=== PATIENT | male | born 1950 | race African-American/Black ===

== ENCOUNTER 2017-02-08 14:47 | Inpatient (IN) | payer MEDICARE ==
[2017-02-08] VITALS (7 sets, daily range): BP systolic 153–186; BP diastolic 79–93
[~2017-02-08] VITALS: Ht 165.1 cm; Wt 75.7 kg
[~2017-02-08 14:47] MED LIST: ACET500T33 PO; ASPI-482 PO; CARV3.122 PO; ESOM40CA PO; INSU100V13 SQ; LISI10TA2 PO; METF-620 PO; TRAZ50TA15 PO
[2017-02-08] MEDS ORDERED: BUPIVACAINE-EPI 0.25%-1:200000 MPF 30 ML VIAL. ONE (14:52)
[2017-02-08] MEDS ORDERED: fentaNYL PF VIAL 100 MCG/2 ML VIAL IV ONE (15:00)
[2017-02-08 15:12] LABS: BASO % 1 % (0-3); EOS % 1 % (0-3); HEMATOCRIT 36.8 % (39.0-53.0); HEMOGLOBIN 12.5 g/dL (13.0-17.5); LYMPH # 1.3 x10^3/uL (1.0-4.8); LYMPH % 20 % (24-48); MEAN CORPUSCULAR HEMOGLOBIN 29 pg (25-35); MEAN CORPUSCULAR HGB CONC 34 g/dL (31-37); MEAN CORPUSCULAR VOLUME 86 fL (79-100); MONO % 15 % (0-9); NEUT % 64 % (31-73); PLATELET COUNT 161 x10^3/uL (140-400); RED BLOOD COUNT 4.27 x10^6/uL (4.30-5.70); RED CELL DISTRIBUTION WIDTH 13.6 % (11.5-14.5); WHITE BLOOD COUNT 6.5 x10^3/uL (4.0-11.0)
--- NOTE | 2017-02-08 15:26 | RAD ---
Ankle x-ray Indication: Status post fall landing on ankle Technique: 2 views of the right ankle Comparison: None Findings: There is comminuted fracture of the tibial plafond with extension to the talotibial joint with lateral angulation. There is complete lateral displaced fracture of the distal fibula. Ankle mortise is no widening. Ankle edema noted. Peripheral vascular disease. Impression: Comminuted moderately displaced and angulated tibial plafond fracture. Moderately displaced angulated distal fibular fracture.
[2017-02-08 15:27] LABS: CALCIUM 9.6 mg/dL (8.5-10.1); CREATININE 1.3 mg/dL (0.7-1.3); POTASSIUM 4.1 mmol/L (3.5-5.1)
[2017-02-08 15:32] LABS: INR 1.2 (0.8-1.1); PROTHROMBIN TIME PATIENT 14.4 SEC (11.7-14.0)
[2017-02-08 15:33] LABS: ALBUMIN 3.6 g/dL (3.4-5.0); ALBUMIN/GLOBULIN RATIO 0.7 (1.0-1.7); TOTAL BILIRUBIN 0.9 mg/dL (0.2-1.0); TOTAL PROTEIN 8.6 g/dL (6.4-8.2)
[2017-02-08] MEDS ORDERED: IBUPROFEN 400 MG TABLET. PO PRN (15:45)
[2017-02-08] MEDS ORDERED: MAGNESIUM HYDROXIDE 2,400 MG/30 ML ORAL.SUSP. PO PRN (15:45)
[2017-02-08] MEDS ORDERED: PROCHLORPERAZINE 25 MG SUPP.RECT. PR PRN (15:45)
[2017-02-08] MEDS ORDERED: ZOLPIDEM 5 MG TABLET. PO PRN (15:45)
[2017-02-08] MEDS ORDERED: ONDANSETRON PF 4 MG/2 ML VIAL. IV PRN (15:45)
[2017-02-08] MEDS ORDERED: BISACODYL 10 MG SUPP.RECT. PR PRN (15:45)
[2017-02-08] MEDS ORDERED: CALCIUM CARBONATE 500 MG TAB.CHEW PO PRN (15:45)
[2017-02-08] MEDS ORDERED: oxyCODONE/APAP 5/325 1 TAB TABLET PO PRN (15:45)
[2017-02-08] MEDS ORDERED: KETOROLAC 30 MG/ML INJ. IV PRN (15:45)
[2017-02-08] MEDS ORDERED: ACETAMINOPHEN 325 MG TABLET. PO PRN (15:45)
[2017-02-08] MEDS ORDERED: MORPHINE SULFATE 2 MG/ML DISP.SYRIN. IV PRN (15:45)
[2017-02-08] MEDS ORDERED: MAG HYDROX/ALUMINUM HYD/SIMETH 30 ML ORAL.SUSP PO PRN (15:45)
[2017-02-08] MEDS ORDERED: PROCHLORPERAZINE 10 MG/2 ML VIAL. IV PRN (15:45)
[2017-02-08] MEDS ORDERED: fentaNYL PF VIAL 100 MCG/2 ML VIAL ONE (15:49)
--- NOTE | 2017-02-08 15:50 | PHYS DOC ---
Past Medical History Past Medical History: Diabetes-Type II, Heart Disease, Hypertension, Other Additional Past Medical Histor: NEUROPATHY, CHRONIC PAIN Past Surgical History: Other Additional Past Surgical Histo: colonoscopy Alcohol Use: None Drug Use: Marijuana Adult General Chief Complaint Chief Complaint: TRAUMA ALERT HPI HPI Patient is a 66 year old male presenting to the emergency department for evaluation of right ankle pain status post fall approximately 9 feet off of the ladder. Reportedly son was trying to hand him a staple gun and then he lost his balance and he did not want to land on the rocks below so he jumped away from the ladder and landed on his right ankle where he thinks he everted it. He says that there is some numbness to his toes but he has normal color with a strong dorsalis pedis pulse. He says that he last ate at 9:00 and thinks that he had a few sips of water at noon. He denies any head neck chest abdomen back or other extremity trauma. He is pleasant in no obvious distress with normal vital signs. Review of Systems Review of Systems Constitutional: Denies fever or chills [] Eyes: Denies change in visual acuity, redness, or eye pain [] HENT: Denies nasal congestion or sore throat [] Respiratory: Denies cough or shortness of breath [] Cardiovascular: No additional information not addressed in HPI [] GI: Denies abdominal pain, nausea, vomiting, bloody stools or diarrhea [] : Denies dysuria or hematuria [] Musculoskeletal: Denies back pain. + joint pain [] Integument: Denies rash or skin lesions [] Neurologic: Denies headache, focal weakness. + sensory changes [] Current Medications Current Medications Current Medications Medications (Trade) Dose Ordered Sig/[place] Start Time Stop Time Status Last Admin Dose Admin Acetaminophen (Tylenol) 650 mg PRN Q6HRS PRN 02/08/17 15:45 UNV Al Hydroxide/Mg Hydroxide (Mylanta Plus Xs) 30 ml PRN Q3HRS PRN 02/08/17 15:45 Bisacodyl (Dulcolax Supp) 10 mg PRN DAILY PRN 02/08/17 15:45 UNV Calcium Carbonate/ Glycine (Tums) 500 mg PRN Q3HRS PRN 02/08/17 15:45 Docusate Sodium (Colace) 100 mg BID 02/08/17 21:00 UNV Enoxaparin Sodium (Lovenox 40mg Syringe) 40 mg Q24H 02/08/17 15:45 UNV Ephedrine Sulfate (Akovaz) 50 mg STK-MED ONCE 02/08/17 15:50 02/08/17 15:51 DC Fentanyl Citrate (Fentanyl 2ml Vial) 100 mcg STK-MED ONCE 02/08/17 15:49 02/08/17 15:50 DC Ibuprofen (Motrin) 400 mg PRN Q6HRS PRN 02/08/17 15:45 UNV Ketorolac Tromethamine (Toradol) 30 mg PRN Q6HRS PRN 02/08/17 15:45 02/13/17 15:44 UNV Magnesium Hydroxide (Milk Of Magnesia) 2,400 mg PRN Q12HR PRN 02/08/17 15:45 UNV Morphine Sulfate 4 mg PRN Q2HR PRN 02/08/17 15:45 UNV Ondansetron HCl (Zofran) 4 mg PRN Q6HRS PRN 02/08/17 15:45 Oxycodone HCl (Roxicodone) 5 mg PRN Q3HRS PRN 02/08/17 15:45 UNV Oxycodone/ Acetaminophen (Percocet 5/325) 2 tab PRN Q4HRS PRN 02/08/17 15:45 UNV Prochlorperazine (Compazine) 25 mg PRN Q12HR PRN 02/08/17 15:45 Prochlorperazine Edisylate (Compazine) 10 mg PRN Q6HRS PRN 02/08/17 15:45 Sodium Chloride 1,000 ml @ 100 mls/hr Q10H 02/08/17 15:43 Zolpidem Tartrate (Ambien) 5 mg PRN QHS PRN 02/08/17 15:45 UNV Allergies Allergies Allergies Uncoded Allergies Type Severity Reaction Last Updated Verified ANTIBIOTIC Allergy Unknown 09/18/13 Physical Exam Physical Exam Constitutional: Well developed, well nourished, no acute distress, non-toxic appearance. [] HENT: Normocephalic, atraumatic, bilateral external ears normal, oropharynx moist, no oral exudates, nose normal. [] Eyes: PERRLA, EOMI, conjunctiva normal, no discharge. [] Neck: Normal range of motion, no tenderness, supple, no stridor. [] Cardiovascular:Heart rate regular rhythm, no murmur [] Lungs & Thorax: Bilateral breath sounds clear to auscultation [] Abdomen: Bowel sounds normal, soft, no tenderness, no masses, no pulsatile masses. [] Skin: Warm, dry, no erythema, no rash. [] Back: No tenderness, no CVA tenderness. [] Extremities: Right ankle deformity with distal dorsalis pedis pulse 2+. Neurologic: Alert and oriented X 3, normal motor function, subjective numbness to toes especially big toe. Current Patient Data Vital Signs Vital Signs Date Time Temp Pulse Resp B/P (MAP) Pulse Ox O2 Delivery O2 Flow Rate FiO2 02/08/17 15:36 91 20 143/71 (95) 96 Room Air 02/08/17 14:54 98.9 98.9 Lab Values Laboratory Tests Test 02/08/17 15:00 White Blood Count 6.5 x10^3/uL (4.0-11.0) Red Blood Count 4.27 x10^6/uL (4.30-5.70) L Hemoglobin 12.5 g/dL (13.0-17.5) L Hematocrit 36.8 % (39.0-53.0) L Mean Corpuscular Volume 86 fL (79-100) Mean Corpuscular Hemoglobin 29 pg (25-35) Mean Corpuscular Hemoglobin Concent 34 g/dL (31-37) Red Cell Distribution Width 13.6 % (11.5-14.5) Platelet Count 161 x10^3/uL (140-400) Neutrophils (%) (Auto) 64 % (31-73) Lymphocytes (%) (Auto) 20 % (24-48) L Monocytes (%) (Auto) 15 % (0-9) H Eosinophils (%) (Auto) 1 % (0-3) Basophils (%) (Auto) 1 % (0-3) Neutrophils # (Auto) 4.2 x10^3uL (1.8-7.7) Lymphocytes # (Auto) 1.3 x10^3/uL (1.0-4.8) Monocytes # (Auto) 1.0 x10^3/uL (0.0-1.1) Eosinophils # (Auto) 0.1 x10^3/uL (0.0-0.7) Basophils # (Auto) 0.0 x10^3/uL (0.0-0.2) Prothrombin Time 14.4 SEC (11.7-14.0) H Prothrombin Time INR 1.2 (0.8-1.1) H PTT 37 SEC (24-38) Sodium Level 140 mmol/L (136-145) Potassium Level 4.1 mmol/L (3.5-5.1) Chloride Level 104 mmol/L (98-107) Carbon Dioxide Level 24 mmol/L (21-32) Anion Gap 12 (6-14) Blood Urea Nitrogen 17 mg/dL (8-26) Creatinine 1.3 mg/dL (0.7-1.3) Estimated GFR (Cockcroft-Gault) 67.0 BUN/Creatinine Ratio 13 (6-20) Glucose Level 95 mg/dL (70-99) Calcium Level 9.6 mg/dL (8.5-10.1) Total Bilirubin 0.9 mg/dL (0.2-1.0) Aspartate Amino Transferase (AST) 206 U/L (15-37) H Alanine Aminotransferase (ALT) 170 U/L (16-63) H Alkaline Phosphatase 226 U/L (46-116) H Total Protein 8.6 g/dL (6.4-8.2) H Albumin 3.6 g/dL (3.4-5.0) Albumin/Globulin Ratio 0.7 (1.0-1.7) L Laboratory Tests 02/08/17 15:00 Laboratory Tests 02/08/17 15:00 EKG EKG [] Radiology/Procedures Radiology/Procedures Ankle x-ray Indication: Status post fall landing on ankle Technique: 2 views of the right ankle Comparison: None Findings: There is comminuted fracture of the tibial plafond with extension to the talotibial joint with lateral angulation. There is complete lateral displaced fracture of the distal fibula. Ankle mortise is no widening. Ankle edema noted. Peripheral vascular disease. Impression: Comminuted moderately displaced and angulated tibial plafond fracture. Moderately displaced angulated distal fibular fracture. DICTATED and SIGNED BY: KYLE CURTIS DO DATE: 02/08/17 0828 Course & Med Decision Making Course & Med Decision Making Patient has comminuted fracture of tibia and fibula with displacement noted. An unstable fracture that will require expects with orthopedics. Hospitalist will admit patient and Dr. Flores will take patient to the operating room. Patient admitted in stable condition. Dragon Disclaimer Dragon Disclaimer This electronic medical record was generated, in whole or in part, using a voice recognition dictation system. Departure Departure Impression: Primary Impression: Ankle fracture Disposition: ADMITTED INPATIENT Admitting Physician: Berna Squires Condition: STABLE Referrals: UNKNOWN PCP NAME (PCP) Problem Qualifiers Primary Impression: Ankle fracture Encounter type: initial encounter Fracture type: closed Laterality: right Qualified Codes: S82.891A - Other fracture of right lower leg, initial encounter for closed fracture OLEGARIO AUSTIN DO Feb 08, 2017 15:50
[2017-02-08] MEDS: ENOXAPARIN 40 MG/0.4 ML SYRINGE. SQ SCH (16:00)
--- NOTE | 2017-02-08 16:07 | PDOC1 ---
History and Physical Date of Admission Date of Admission DATE: 02/08/17 TIME: 16:03 Identification/Chief Complaint Chief Complaint fall from ladder Problems: Source Source: Caregiver, Chart review History of Present Illness History of Present Illness 66 y,.o male was helping a friend fix a roof, they twisted and he lost balance and so jumped off the ladder 9-12 ft high and fell on his feet and has been having sever pain since then, unable to bear weight, sustained a Comminuted moderately displaced and angulated tibial plafond fracture. Moderately displaced angulated distal fibular fracture.. Admitted and now having OR c.o ortho, PAst medical signif for DM with neuropathy, HTN, dyslipidemia but no known cardiac hx. Past Medical History Cardiovascular: HTN, Hyperlipidemia Endocrine: Diabetes Past Surgical History Past Surgical History: No pertinent history Family History Family History: High Cholestrol, Hypertension Social History Smoke: No ALCOHOL: none Drugs: None Current Medications Current Medications Current Medications Fentanyl Citrate (Fentanyl 2ml Vial) 100 mcg 1X ONCE IV Last administered on 02/08/17t 15:09; Start 02/08/17 at 15:00; Stop 02/08/17 at 15:14; Status DC Active Scripts Active Reported Metformin Hcl 1,000 Mg Tablet 1,000 Mg PO Tylenol Extra Strength (Acetaminophen) 500 Mg Tablet 500 Mg PO Levemir (Insulin Detemir) 100 Unit/1 Ml Vial 100 Unit SQ Trazodone Hcl 50 Mg Tablet 50 Mg PO Lisinopril 10 Mg Tablet 10 Mg PO Nexium (Esomeprazole Magnesium) 40 Mg Capsule.dr 40 Mg PO Aspir 81 (Aspirin) 81 Mg Tablet.dr 81 Mg PO Carvedilol 3.125 Mg Tablet 3.125 Mg PO Allergies Allergies: Uncoded Allergies: ANTIBIOTIC (Allergy, Unknown, 09/18/13) pt is unsure of the name of the antibiotic that he had an allergic reaction to and states that it gave him a rash ROS Review of System ankle pain , all else is neg Physical Exam General: Alert, Oriented X3, Cooperative, No acute distress HEENT: Atraumatic, PERRLA, EOMI Lungs: Clear to auscultation Heart: S1S2, RRR, no thrills, no rubs, no gallops, no murmurs Cardiovascular: S1 Abdomen: Normal bowel sounds, Soft, No tenderness, No hepatosplenomegaly, No masses Male Genitals Exam: normal genitalia, normal prostate Rectal Exam: not examined Extremities: Other (ankle/that extremity in a cast) Skin: No rashes, No breakdown, No significant lesion Neuro: Normal gait, Normal speech, Strength at 5/5 X4 ext, Normal tone, Sensation intact, Cranial nerves 3-12 NL, Reflexes 2+ Psych/Mental Status: Mental status NL, Mood NL Vitals Vitals Vital Signs Date Time Temp Pulse Resp B/P (MAP) Pulse Ox O2 Delivery O2 Flow Rate FiO2 02/08/17 15:36 91 20 143/71 (95) 96 Room Air 02/08/17 14:54 98.9 98.9 Labs Labs Laboratory Tests Test 02/08/17 15:00 White Blood Count 6.5 x10^3/uL (4.0-11.0) Red Blood Count 4.27 x10^6/uL (4.30-5.70) Hemoglobin 12.5 g/dL (13.0-17.5) Hematocrit 36.8 % (39.0-53.0) Mean Corpuscular Volume 86 fL (79-100) Mean Corpuscular Hemoglobin 29 pg (25-35) Mean Corpuscular Hemoglobin Concent 34 g/dL (31-37) Red Cell Distribution Width 13.6 % (11.5-14.5) Platelet Count 161 x10^3/uL (140-400) Neutrophils (%) (Auto) 64 % (31-73) Lymphocytes (%) (Auto) 20 % (24-48) Monocytes (%) (Auto) 15 % (0-9) Eosinophils (%) (Auto) 1 % (0-3) Basophils (%) (Auto) 1 % (0-3) Neutrophils # (Auto) 4.2 x10^3uL (1.8-7.7) Lymphocytes # (Auto) 1.3 x10^3/uL (1.0-4.8) Monocytes # (Auto) 1.0 x10^3/uL (0.0-1.1) Eosinophils # (Auto) 0.1 x10^3/uL (0.0-0.7) Basophils # (Auto) 0.0 x10^3/uL (0.0-0.2) Prothrombin Time 14.4 SEC (11.7-14.0) Prothromb Time International Ratio 1.2 (0.8-1.1) Activated Partial Thromboplast Time 37 SEC (24-38) Sodium Level 140 mmol/L (136-145) Potassium Level 4.1 mmol/L (3.5-5.1) Chloride Level 104 mmol/L (98-107) Carbon Dioxide Level 24 mmol/L (21-32) Anion Gap 12 (6-14) Blood Urea Nitrogen 17 mg/dL (8-26) Creatinine 1.3 mg/dL (0.7-1.3) Estimated GFR (Cockcroft-Gault) 67.0 BUN/Creatinine Ratio 13 (6-20) Glucose Level 95 mg/dL (70-99) Calcium Level 9.6 mg/dL (8.5-10.1) Total Bilirubin 0.9 mg/dL (0.2-1.0) Aspartate Amino Transf (AST/SGOT) 206 U/L (15-37) Alanine Aminotransferase (ALT/SGPT) 170 U/L (16-63) Alkaline Phosphatase 226 U/L (46-116) Total Protein 8.6 g/dL (6.4-8.2) Albumin 3.6 g/dL (3.4-5.0) Albumin/Globulin Ratio 0.7 (1.0-1.7) Laboratory Tests Test 02/08/17 15:00 White Blood Count 6.5 x10^3/uL (4.0-11.0) Red Blood Count 4.27 x10^6/uL (4.30-5.70) Hemoglobin 12.5 g/dL (13.0-17.5) Hematocrit 36.8 % (39.0-53.0) Mean Corpuscular Volume 86 fL (79-100) Mean Corpuscular Hemoglobin 29 pg (25-35) Mean Corpuscular Hemoglobin Concent 34 g/dL (31-37) Red Cell Distribution Width 13.6 % (11.5-14.5) Platelet Count 161 x10^3/uL (140-400) Neutrophils (%) (Auto) 64 % (31-73) Lymphocytes (%) (Auto) 20 % (24-48) Monocytes (%) (Auto) 15 % (0-9) Eosinophils (%) (Auto) 1 % (0-3) Basophils (%) (Auto) 1 % (0-3) Neutrophils # (Auto) 4.2 x10^3uL (1.8-7.7) Lymphocytes # (Auto) 1.3 x10^3/uL (1.0-4.8) Monocytes # (Auto) 1.0 x10^3/uL (0.0-1.1) Eosinophils # (Auto) 0.1 x10^3/uL (0.0-0.7) Basophils # (Auto) 0.0 x10^3/uL (0.0-0.2) Prothrombin Time 14.4 SEC (11.7-14.0) Prothromb Time International Ratio 1.2 (0.8-1.1) Activated Partial Thromboplast Time 37 SEC (24-38) Sodium Level 140 mmol/L (136-145) Potassium Level 4.1 mmol/L (3.5-5.1) Chloride Level 104 mmol/L (98-107) Carbon Dioxide Level 24 mmol/L (21-32) Anion Gap 12 (6-14) Blood Urea Nitrogen 17 mg/dL (8-26) Creatinine 1.3 mg/dL (0.7-1.3) Estimated GFR (Cockcroft-Gault) 67.0 BUN/Creatinine Ratio 13 (6-20) Glucose Level 95 mg/dL (70-99) Calcium Level 9.6 mg/dL (8.5-10.1) Total Bilirubin 0.9 mg/dL (0.2-1.0) Aspartate Amino Transf (AST/SGOT) 206 U/L (15-37) Alanine Aminotransferase (ALT/SGPT) 170 U/L (16-63) Alkaline Phosphatase 226 U/L (46-116) Total Protein 8.6 g/dL (6.4-8.2) Albumin 3.6 g/dL (3.4-5.0) Albumin/Globulin Ratio 0.7 (1.0-1.7) VTE Prophylaxis Ordered VTE Prophylaxis Devices: Yes VTE Pharmacological Prophylaxi: Yes Assessment/Plan Assessment/Plan 1. Comminuted moderately displaced and angulated tibial plafond fracture. Moderately displaced angulated distal fibular fracture. 2. DM 2 with neuropathy 3. HTN, dyslipdiemia PLAn: 2 MN admit Check vit d level Check labs post op PT/OT Ortho consulted OR now dw ER staff SAM NICOLAS MD Feb 08, 2017 16:07
[2017-02-08] MEDS ORDERED: FAMOTIDINE 20 MG/2 ML VIAL ONE (16:48)
[2017-02-08] MEDS ORDERED: ONDANSETRON PF 4 MG/2 ML VIAL. ONE (16:48)
[2017-02-08] MEDS ORDERED: PROPOFOL 20 ML IV ONE (16:48)
[2017-02-08] MEDS ORDERED: LIDOCAINE 2% PF Vial for OR 5 ML VIAL. ONE (16:48)
[2017-02-08] MEDS ORDERED: DEXAMETHASONE SOD PHOS 20 MG/5 ML VIAL. ONE (16:52)
--- NOTE | 2017-02-08 17:30 | PDOC2 ---
CONSULT Date of Consult Date of Consult DATE: 02/08/17 TIME: 17:22 Reason for Consult Reason for Consult: right pilon fracture Identification/Chief Complaint Chief Complaint right ankle pain Problems: Source Source: Chart review, Patient History of Present Illness Reason for Visit: The patient is a 66 year old male who was on a ladder earlier today when he started to lose his balance. He jumped off the ladder and fell approximately 9 feet onto his right ankle sustaining a fracture. He did not hit his head. He does not report any back pain or any other pain besides his right ankle. He has a history of DM and PVD. He is a non-smoker. He has had an ex fix on his left wrist before. He has a strong pulse in his foot and some diminished sensation in the plantar aspect of his foot. However he also reports that he has neuropathy at baseline with decreased sensation in his feet and sometimes hands. Past Medical History Cardiovascular: HTN, Hyperlipidemia Endocrine: Diabetes Past Surgical History Past Surgical History: No pertinent history (left wrist ex fix) Family History Family History: High Cholestrol, Hypertension Social History No ALCOHOL: none Drugs: None Current Problem List Problem List Right pilon fracture Current Medications Current Medications Current Medications Fentanyl Citrate (Fentanyl 2ml Vial) 100 mcg 1X ONCE IV Last administered on 02/08/17t 15:09; Start 02/08/17 at 15:00; Stop 02/08/17 at 15:14; Status DC Sodium Chloride 1,000 ml @ 100 mls/hr Q10H IV ; Start 02/08/17 at 15:43 Ondansetron HCl (Zofran) 4 mg PRN Q6HRS PRN IV NAUSEA/VOMITING; Start 02/08/17 at 15:45 Prochlorperazine Edisylate (Compazine) 10 mg PRN Q6HRS PRN IV NAUSEA/VOMITING; Start 02/08/17 at 15:45 Prochlorperazine (Compazine) 25 mg PRN Q12HR PRN AL NAUSEA/VOMITING; Start 02/08/17 at 15:45 Al Hydroxide/Mg Hydroxide (Mylanta Plus Xs) 30 ml PRN Q3HRS PRN PO HEARTBURN / GAS; Start 02/08/17 at 15:45 Calcium Carbonate/ Glycine (Tums) 500 mg PRN Q3HRS PRN PO UPSET STOMACH; Start 02/08/17 at 15:45 Zolpidem Tartrate (Ambien) 5 mg PRN QHS PRN PO INSOMNIA, MAY REPEAT IN 1HR; Start 02/08/17 at 15:45 Oxycodone HCl (Roxicodone) 5 mg PRN Q3HRS PRN PO BREAKTHROUGH PAIN; Start 02/08 at 15:45 Morphine Sulfate 4 mg PRN Q2HR PRN IV PAIN; Start 02/08/17 at 15:45 Oxycodone/ Acetaminophen (Percocet 5/325) 1 tab PRN Q4HRS PRN PO MILD PAIN, 1ST CHOICE; Start 02/08/17 at 15:45 Oxycodone/ Acetaminophen (Percocet 5/325) 2 tab PRN Q4HRS PRN PO MODERATE PAIN , SEVERE PAIN; Start 02/08/17 at 15:45 Ketorolac Tromethamine (Toradol) 30 mg PRN Q6HRS PRN IV PAIN; Start 02/08/17 at 15:45; Stop 02/13/17 at 15:44 Acetaminophen (Tylenol) 650 mg PRN Q6HRS PRN PO Headaches, Temp > 101.5F; Start 02/08/17 at 15:45 Ibuprofen (Motrin) 400 mg PRN Q6HRS PRN PO MILD PAIN; Start 02/08/17 at 15:45 Docusate Sodium (Colace) 100 mg BID PO ; Start 02/08/17 at 21:00 Magnesium Hydroxide (Milk Of Magnesia) 2,400 mg PRN Q12HR PRN PO CONSTIPATION; Start 02/08/17 at 15:45 Bisacodyl (Dulcolax Supp) 10 mg PRN DAILY PRN AL CONSTIPATION; Start 02/08/17 at 15:45 Enoxaparin Sodium (Lovenox 40mg Syringe) 40 mg Q24H SQ ; Start 02/08/17 at 16:00 Fentanyl Citrate (Fentanyl 2ml Vial) 100 mcg STK-MED ONCE .ROUTE ; Start at 15:49; Stop 02/08/17 at 15:50; Status DC Ephedrine Sulfate (Akovaz) 50 mg STK-MED ONCE .ROUTE ; Start 02/08/17 at 15:50; Stop 02/08/17 at 15:51; Status DC Bupivacaine HCl/ Epinephrine Bitart (Sensorcaine-Epi 0.25%-1:025882 Mpf) 30 ml STK-MED ONCE .ROUTE Last administered on 02/08/17t 16:47; Start 02/08/17 at 14: 52; Stop 02/08/17 at 15:52; Status DC Cefazolin Sodium/ Dextrose 50 ml @ As Directed STK-MED ONCE IV ; Start 02/08/17 at 16:13; Stop 02/08/17 at 16:14; Status DC Propofol 20 ml @ As Directed STK-MED ONCE IV ; Start 02/08/17 at 16:48; Stop at 16:49; Status DC Famotidine (Pepcid) 20 mg STK-MED ONCE .ROUTE ; Start 02/08/17 at 16:48; Stop 02/08/17 at 16:49; Status DC Lidocaine HCl (Lidocaine Pf 2% Vial) 5 ml STK-MED ONCE .ROUTE ; Start 02/08/17 at 16:48; Stop 02/08/17 at 16:49; Status DC Ondansetron HCl (Zofran) 4 mg STK-MED ONCE .ROUTE ; Start 02/08/17 at 16:48; Stop 02/08/17 at 16:49; Status DC Dexamethasone Sodium Phosphate (Decadron) 20 mg STK-MED ONCE .ROUTE ; Start 02/08/17 at 16:52; Stop 02/08/17 at 16:53; Status DC Active Scripts Active Reported Metformin Hcl 1,000 Mg Tablet 1,000 Mg PO Tylenol Extra Strength (Acetaminophen) 500 Mg Tablet 500 Mg PO Levemir (Insulin Detemir) 100 Unit/1 Ml Vial 100 Unit SQ Trazodone Hcl 50 Mg Tablet 50 Mg PO Lisinopril 10 Mg Tablet 10 Mg PO Nexium (Esomeprazole Magnesium) 40 Mg Capsule. 40 Mg PO Aspir 81 (Aspirin) 81 Mg Tablet.dr 81 Mg PO Carvedilol 3.125 Mg Tablet 3.125 Mg PO Allergies Allergies: Uncoded Allergies: ANTIBIOTIC (Allergy, Unknown, 09/18/13) pt is unsure of the name of the antibiotic that he had an allergic reaction to and states that it gave him a rash ROS General: No: Chills, Night Sweats, Fatigue, Malaise, Appetite, Other Musculoskeletal: Yes Gait Disturbance, Yes Joint Pain, Yes Joint Stiffness, Yes Joint Swelling, Yes Pain In: (rle) Physical Exam General: Alert, Oriented X3, Cooperative, mild distress Lungs: Normal air movement Heart: Regular rate Extremities: No clubbing, No cyanosis, Normal pulses MUSCULOSKELETAL: Other (rle with a 90 degree gross deformity at the right ankle with the foot externally rotated. the skin is intact. 2+ dp and pt pulses. thickened toenails. minimal movement at the toes. decreased sensation to the plantar foot. silt in sp/dp/sural/ saph nerves. ) Vitals VITALS Vital Signs Date Time Temp Pulse Resp B/P (MAP) Pulse Ox O2 Delivery O2 Flow Rate FiO2 02/08/17 15:40 99.1 88 20 154/74 98 99.1 02/08/17 15:36 Room Air Labs Labs Laboratory Tests Test 02/08/17 15:00 White Blood Count 6.5 x10^3/uL (4.0-11.0) Red Blood Count 4.27 x10^6/uL (4.30-5.70) Hemoglobin 12.5 g/dL (13.0-17.5) Hematocrit 36.8 % (39.0-53.0) Mean Corpuscular Volume 86 fL (79-100) Mean Corpuscular Hemoglobin 29 pg (25-35) Mean Corpuscular Hemoglobin Concent 34 g/dL (31-37) Red Cell Distribution Width 13.6 % (11.5-14.5) Platelet Count 161 x10^3/uL (140-400) Neutrophils (%) (Auto) 64 % (31-73) Lymphocytes (%) (Auto) 20 % (24-48) Monocytes (%) (Auto) 15 % (0-9) Eosinophils (%) (Auto) 1 % (0-3) Basophils (%) (Auto) 1 % (0-3) Neutrophils # (Auto) 4.2 x10^3uL (1.8-7.7) Lymphocytes # (Auto) 1.3 x10^3/uL (1.0-4.8) Monocytes # (Auto) 1.0 x10^3/uL (0.0-1.1) Eosinophils # (Auto) 0.1 x10^3/uL (0.0-0.7) Basophils # (Auto) 0.0 x10^3/uL (0.0-0.2) Prothrombin Time 14.4 SEC (11.7-14.0) Prothromb Time International Ratio 1.2 (0.8-1.1) Activated Partial Thromboplast Time 37 SEC (24-38) Sodium Level 140 mmol/L (136-145) Potassium Level 4.1 mmol/L (3.5-5.1) Chloride Level 104 mmol/L (98-107) Carbon Dioxide Level 24 mmol/L (21-32) Anion Gap 12 (6-14) Blood Urea Nitrogen 17 mg/dL (8-26) Creatinine 1.3 mg/dL (0.7-1.3) Estimated GFR (Cockcroft-Gault) 67.0 BUN/Creatinine Ratio 13 (6-20) Glucose Level 95 mg/dL (70-99) Calcium Level 9.6 mg/dL (8.5-10.1) Total Bilirubin 0.9 mg/dL (0.2-1.0) Aspartate Amino Transf (AST/SGOT) 206 U/L (15-37) Alanine Aminotransferase (ALT/SGPT) 170 U/L (16-63) Alkaline Phosphatase 226 U/L (46-116) Total Protein 8.6 g/dL (6.4-8.2) Albumin 3.6 g/dL (3.4-5.0) Albumin/Globulin Ratio 0.7 (1.0-1.7) Laboratory Tests Test 02/08/17 15:00 White Blood Count 6.5 x10^3/uL (4.0-11.0) Red Blood Count 4.27 x10^6/uL (4.30-5.70) Hemoglobin 12.5 g/dL (13.0-17.5) Hematocrit 36.8 % (39.0-53.0) Mean Corpuscular Volume 86 fL (79-100) Mean Corpuscular Hemoglobin 29 pg (25-35) Mean Corpuscular Hemoglobin Concent 34 g/dL (31-37) Red Cell Distribution Width 13.6 % (11.5-14.5) Platelet Count 161 x10^3/uL (140-400) Neutrophils (%) (Auto) 64 % (31-73) Lymphocytes (%) (Auto) 20 % (24-48) Monocytes (%) (Auto) 15 % (0-9) Eosinophils (%) (Auto) 1 % (0-3) Basophils (%) (Auto) 1 % (0-3) Neutrophils # (Auto) 4.2 x10^3uL (1.8-7.7) Lymphocytes # (Auto) 1.3 x10^3/uL (1.0-4.8) Monocytes # (Auto) 1.0 x10^3/uL (0.0-1.1) Eosinophils # (Auto) 0.1 x10^3/uL (0.0-0.7) Basophils # (Auto) 0.0 x10^3/uL (0.0-0.2) Prothrombin Time 14.4 SEC (11.7-14.0) Prothromb Time International Ratio 1.2 (0.8-1.1) Activated Partial Thromboplast Time 37 SEC (24-38) Sodium Level 140 mmol/L (136-145) Potassium Level 4.1 mmol/L (3.5-5.1) Chloride Level 104 mmol/L (98-107) Carbon Dioxide Level 24 mmol/L (21-32) Anion Gap 12 (6-14) Blood Urea Nitrogen 17 mg/dL (8-26) Creatinine 1.3 mg/dL (0.7-1.3) Estimated GFR (Cockcroft-Gault) 67.0 BUN/Creatinine Ratio 13 (6-20) Glucose Level 95 mg/dL (70-99) Calcium Level 9.6 mg/dL (8.5-10.1) Total Bilirubin 0.9 mg/dL (0.2-1.0) Aspartate Amino Transf (AST/SGOT) 206 U/L (15-37) Alanine Aminotransferase (ALT/SGPT) 170 U/L (16-63) Alkaline Phosphatase 226 U/L (46-116) Total Protein 8.6 g/dL (6.4-8.2) Albumin 3.6 g/dL (3.4-5.0) Albumin/Globulin Ratio 0.7 (1.0-1.7) Images Images Xrays of his right ankle reveal a significantly displaced distal third intra- articular tibia fracture, pilon variant; and a fibular fracture, displaced. Assessment/Plan Assessment/Plan The patient is a 66 year old male with a pilon fracture of his rle. We discussed temporizing his leg to let the soft tissues rest and to decrease his pain in his right leg with an external fixator. The risks of surgery including infection, damage to nerves, surrounding tissues and structures, malunion, nonunion, and even futuristically amputation were discussed with the patient. This is a very significant life-changing, debilitating injury especially given his medical comorbidities of neuropathy, DM, and PVD. He understands and would like to undergo external fixation. We will obtain a ct scan of the ankle after surgery with 3d reconstructions. His final fixation will be performed by Dr. Tootie Mae at [facility]. We will need to discuss follow-up for that once he is stabilized and his pain is better controlled. Dvt ppx: lovenox pain control perioperative antibiotics nwb rle elevate the leg above the level of his heart. ABHILASH GOODWIN MD Feb 08, 2017 17:30
[2017-02-08] MEDS: fentaNYL PF VIAL 100 MCG/2 ML VIAL IV PRN ×4 (17:31→17:46)
[2017-02-08] MEDS ORDERED: MORPHINE SULFATE 4 MG/ML DISP.SYRIN. ONE (17:34)
[2017-02-08] MEDS: MORPHINE SULFATE 2 MG/ML DISP.SYRIN. IV PRN ×2 (17:37→17:47)
[2017-02-08] MEDS ORDERED: HYDROmorphone 2 MG/ML VIAL IV PRN (17:45)
[2017-02-08] MEDS ORDERED: fentaNYL PF VIAL 100 MCG/2 ML VIAL IV PRN (17:45)
[2017-02-08] MEDS: IV RINGERS,LACTATED 1000ML 1,000 ML IV SCH (18:21)
[2017-02-08] MEDS: oxyCODONE/APAP 5/325 1 TAB TABLET PO PRN (20:39)
[2017-02-08] MEDS: DOCUSATE SODIUM 100 MG CAPSULE. PO SCH (20:39)
[2017-02-08] MEDS: IV 1/2 NORMAL SALINE 1,000 ML IV SCH (20:48)
[2017-02-08] MEDS ORDERED: GABA600T2 PO (21:31)
[2017-02-08] MEDS ORDERED: LISI40TA PO (21:31)
[2017-02-08] MEDS ORDERED: TRAM50TA PO (21:31)
--- NOTE | 2017-02-08 22:17 | PDOC4 ---
Operative Note Operative Note Date of Surgery: 02/08/2017 PREOPERATIVE DIAGNOSES: Right pilon ankle fracture : S82.871A POSTOPERATIVE DIAGNOSES: same OPERATION PERFORMED: 1. Application of multi-planar spanning external fixator to reduce ankle fracture; CPT 31560 2. Closed treatment of right pilon fracture with manipulation, CPT 41505 SURGEON: Abhilash Goodwin MD MANAGER SYSTEMS: none ANESTHESIA: General endotracheal. INDICATIONS: The patient is a 66 year old male who presented to [facility] ER with a right pilon fracture after he fell off of a ladder. His ankle was found to be grossly deformed with 90 degree twist at the ankle. Due to the instability of the injury and soft tissue compromise it was decided to take him to the OR for external fixator placement. OPERATIVE PROCEDURE: The patient was taken to the operating room and underwent induction of general anesthesia. The patient was placed in the supine position. The right lower extremity was prepped and draped in the normal sterile fashion with chloraprep. Two proximal tibial transfixation pins were placed in the anteromedial tibia by predilling and then placing the pins. A transfixation pin was placed in the calcaneus and distraction was used to reduce the pilon fracture. Final fluorographic shots were obtained showing improved alignment of the joint and fracture in both AP and Lateral views. All of the pin sites were dressed with xeroform and kerlix. The entire leg was dressed in an BRYANT bandage. The patient was woken from anesthesia, transferred to the stretcher and recovery room awake, alert, and in stable condition. Additional Remarks: The patient is to be NWB on the operative RLE. The leg should be kept elevated above the level of their heart with a lot of ice over the next few days. We will continue to monitor the skin condition for additional blistering and swelling resolution. The patient will need skin wrinkles and resolution of any fracture blisters prior to undergoing internal fixation. -Dvt ppx. -will start pin care pod 2. -Dr. Tootie Mae will assume the patients care for definitive management. 3d ct scan with reconstructions. ABHILASH GOODWIN MD Feb 08, 2017 22:17
[2017-02-08] MEDS ORDERED: DEXTROSE 50% 25 GM / 50ML DISP.SYRIN. IV PRN (23:00)
[2017-02-08] MEDS ORDERED: INSU100V13 SQ (23:15)
[2017-02-08] MEDS: oxyCODONE IR 5 MG TABLET PO PRN (23:27)
[2017-02-08] MEDS ORDERED: INSULIN ASPART 300 UNITS/3 ML INSULN.PEN SQ ONE (23:45)
[2017-02-09 01:03] VITALS: BP 164/87
[2017-02-09] MEDS: IV 1/2 NORMAL SALINE 1,000 ML IV SCH (01:43)
[2017-02-09] MEDS: IV RINGERS,LACTATED 1000ML 1,000 ML IV SCH (02:21)
[2017-02-09 03:28] VITALS: BP 147/79
[2017-02-09 06:10] LABS: BASO % 0 % (0-3); EOS % 0 % (0-3); HEMATOCRIT 33.3 % (39.0-53.0); HEMOGLOBIN 11.6 g/dL (13.0-17.5); LYMPH # 0.7 x10^3/uL (1.0-4.8); LYMPH % 10 % (24-48); MEAN CORPUSCULAR HEMOGLOBIN 30 pg (25-35); MEAN CORPUSCULAR HGB CONC 35 g/dL (31-37); MEAN CORPUSCULAR VOLUME 86 fL (79-100); MONO % 9 % (0-9); NEUT % 81 % (31-73); PLATELET COUNT 120 x10^3/uL (140-400); RED BLOOD COUNT 3.89 x10^6/uL (4.30-5.70); RED CELL DISTRIBUTION WIDTH 13.6 % (11.5-14.5); WHITE BLOOD COUNT 6.6 x10^3/uL (4.0-11.0)
[2017-02-09 07:15] VITALS: BP 145/93
[2017-02-09 08:50] LABS: ALBUMIN/GLOBULIN RATIO 0.6 (1.0-1.7); CALCIUM 9.1 mg/dL (8.5-10.1); CREATININE 1.3 mg/dL (0.7-1.3); POTASSIUM 5.5 mmol/L (3.5-5.1); TOTAL BILIRUBIN 0.6 mg/dL (0.2-1.0); TOTAL PROTEIN 7.9 g/dL (6.4-8.2)
[2017-02-09] MEDS ORDERED: LISINOPRIL 40 MG TABLET. PO SCH (09:00)
[2017-02-09] MEDS ORDERED: GABAPENTIN 300 MG CAPSULE. PO SCH (09:00)
[2017-02-09] MEDS: DOCUSATE SODIUM 100 MG CAPSULE. PO SCH (09:04)
[2017-02-09] MEDS: traMADol 50 MG TABLET PO SCH ×2 (09:05→15:22)
[2017-02-09] MEDS: oxyCODONE IR 5 MG TABLET PO PRN ×2 (09:08→15:20)
[2017-02-09] MEDS: INSULIN ASPART 300 UNITS/3 ML INSULN.PEN SQ SCH ×3 (09:13→16:32)
--- NOTE | 2017-02-09 09:41 | RAD ---
CT of the right ankle Indication: Pilon fracture. Technique: CT of the right ankle with multiplanar reformats with 3-D reconstructions. Comparison: Previous plain films from 02/08/2017 Findings: External stabilization device noted with the stabilizing elvis passing through the calcaneus. Redemonstrated is a comminuted fracture of the distal tibia with extension to the talotibial joint. There is posterior and lateral displacement of the distal fracture fragments. Redemonstrated is a comminuted fracture through the distal fibula with posterior and lateral angulation of the distal fracture fragments. The fracture does not extend to the lateral malleolus. Ankle joint effusion noted. Significant soft tissue edema noted of the lower leg and ankle. Peripheral vascular disease noted. Impression: 1. Moderately displaced pilon and distal fibular fracture with external stabilization. 2. Significant ankle edema. PQRS Compliance Statement: One or more of the following individualized dose reduction techniques were utilized for this examination: 1. Automated exposure control 2. Adjustment of the mA and/or kV according to patient size 3. Use of iterative reconstruction technique
--- NOTE | 2017-02-09 09:48 | RAD ---
Please see dictation on CT lower extremity done on the same day.
[2017-02-09] MEDS: oxyCODONE/APAP 5/325 1 TAB TABLET PO PRN ×2 (10:51→16:57)
[2017-02-09 11:06] VITALS: BP 157/80
--- NOTE | 2017-02-09 11:10 | PDOC ---
PROGRESS NOTES Subjective Subjective States he is doing well. Pain is controlled. Objective Vital Signs Vital Signs Date Time Temp Pulse Resp B/P (MAP) Pulse Ox O2 Delivery O2 Flow Rate FiO2 02/09/17 10:51 18 Room Air 02/09/17 09:06 78 145/93 02/09/17 07:15 98.2 97 98.2 02/08/17 17:37 10.0 Physical Exam Lying in bed with right leg elevated. External fixator intact to right lower leg. BRYANT wrap on leg and pin sites wrapped with xeroform and kerlix. No apparent skin blistering at this time. Calf soft and nontender. Good dorsiflexion and plantarflexion at toes. Dorsalis pedis pulse intact. Neurovascularly intact. Light touch sensation intact at toes. Labs Laboratory Tests Test 02/08/17 15:00 02/08/17 17:28 02/08/17 17:49 02/08/17 22:12 White Blood Count 6.5 x10^3/uL (4.0-11.0) Red Blood Count 4.27 x10^6/uL (4.30-5.70) Hemoglobin 12.5 g/dL (13.0-17.5) Hematocrit 36.8 % (39.0-53.0) Mean Corpuscular Volume 86 fL (79-100) Mean Corpuscular Hemoglobin 29 pg (25-35) Mean Corpuscular Hemoglobin Concent 34 g/dL (31-37) Red Cell Distribution Width 13.6 % (11.5-14.5) Platelet Count 161 x10^3/uL (140-400) Neutrophils (%) (Auto) 64 % (31-73) Lymphocytes (%) (Auto) 20 % (24-48) Monocytes (%) (Auto) 15 % (0-9) Eosinophils (%) (Auto) 1 % (0-3) Basophils (%) (Auto) 1 % (0-3) Neutrophils # (Auto) 4.2 x10^3uL (1.8-7.7) Lymphocytes # (Auto) 1.3 x10^3/uL (1.0-4.8) Monocytes # (Auto) 1.0 x10^3/uL (0.0-1.1) Eosinophils # (Auto) 0.1 x10^3/uL (0.0-0.7) Basophils # (Auto) 0.0 x10^3/uL (0.0-0.2) Prothrombin Time 14.4 SEC (11.7-14.0) Prothromb Time International Ratio 1.2 (0.8-1.1) Activated Partial Thromboplast Time 37 SEC (24-38) Sodium Level 140 mmol/L (136-145) Potassium Level 4.1 mmol/L (3.5-5.1) Chloride Level 104 mmol/L (98-107) Carbon Dioxide Level 24 mmol/L (21-32) Anion Gap 12 (6-14) Blood Urea Nitrogen 17 mg/dL (8-26) Creatinine 1.3 mg/dL (0.7-1.3) Estimated GFR (Cockcroft-Gault) 67.0 BUN/Creatinine Ratio 13 (6-20) Glucose Level 95 mg/dL (70-99) Calcium Level 9.6 mg/dL (8.5-10.1) Total Bilirubin 0.9 mg/dL (0.2-1.0) Aspartate Amino Transf (AST/SGOT) 206 U/L (15-37) Alanine Aminotransferase (ALT/SGPT) 170 U/L (16-63) Alkaline Phosphatase 226 U/L (46-116) Total Protein 8.6 g/dL (6.4-8.2) Albumin 3.6 g/dL (3.4-5.0) Albumin/Globulin Ratio 0.7 (1.0-1.7) Glucose (Fingerstick) 69 mg/dL (70-99) 75 mg/dL (70-99) 236 mg/dL (70-99) Test 02/09/17 05:00 02/09/17 07:28 White Blood Count 6.6 x10^3/uL (4.0-11.0) Red Blood Count 3.89 x10^6/uL (4.30-5.70) Hemoglobin 11.6 g/dL (13.0-17.5) Hematocrit 33.3 % (39.0-53.0) Mean Corpuscular Volume 86 fL (79-100) Mean Corpuscular Hemoglobin 30 pg (25-35) Mean Corpuscular Hemoglobin Concent 35 g/dL (31-37) Red Cell Distribution Width 13.6 % (11.5-14.5) Platelet Count 120 x10^3/uL (140-400) Neutrophils (%) (Auto) 81 % (31-73) Lymphocytes (%) (Auto) 10 % (24-48) Monocytes (%) (Auto) 9 % (0-9) Eosinophils (%) (Auto) 0 % (0-3) Basophils (%) (Auto) 0 % (0-3) Neutrophils # (Auto) 5.3 x10^3uL (1.8-7.7) Lymphocytes # (Auto) 0.7 x10^3/uL (1.0-4.8) Monocytes # (Auto) 0.6 x10^3/uL (0.0-1.1) Eosinophils # (Auto) 0.0 x10^3/uL (0.0-0.7) Basophils # (Auto) 0.0 x10^3/uL (0.0-0.2) Sodium Level 139 mmol/L (136-145) Potassium Level 5.5 mmol/L (3.5-5.1) Chloride Level 105 mmol/L (98-107) Carbon Dioxide Level 29 mmol/L (21-32) Anion Gap 5 (6-14) Blood Urea Nitrogen 17 mg/dL (8-26) Creatinine 1.3 mg/dL (0.7-1.3) Estimated GFR (Cockcroft-Gault) 67.0 BUN/Creatinine Ratio 13 (6-20) Glucose Level 168 mg/dL (70-99) Calcium Level 9.1 mg/dL (8.5-10.1) Total Bilirubin 0.6 mg/dL (0.2-1.0) Aspartate Amino Transf (AST/SGOT) 151 U/L (15-37) Alanine Aminotransferase (ALT/SGPT) 136 U/L (16-63) Alkaline Phosphatase 191 U/L (46-116) Total Protein 7.9 g/dL (6.4-8.2) Albumin 3.0 g/dL (3.4-5.0) Albumin/Globulin Ratio 0.6 (1.0-1.7) Glucose (Fingerstick) 226 mg/dL (70-99) Laboratory Tests Test 02/08/17 15:00 02/08/17 17:28 02/08/17 17:49 10/3/17 22:12 White Blood Count 6.5 x10^3/uL (4.0-11.0) Red Blood Count 4.27 x10^6/uL (4.30-5.70) Hemoglobin 12.5 g/dL (13.0-17.5) Hematocrit 36.8 % (39.0-53.0) Mean Corpuscular Volume 86 fL (79-100) Mean Corpuscular Hemoglobin 29 pg (25-35) Mean Corpuscular Hemoglobin Concent 34 g/dL (31-37) Red Cell Distribution Width 13.6 % (11.5-14.5) Platelet Count 161 x10^3/uL (140-400) Neutrophils (%) (Auto) 64 % (31-73) Lymphocytes (%) (Auto) 20 % (24-48) Monocytes (%) (Auto) 15 % (0-9) Eosinophils (%) (Auto) 1 % (0-3) Basophils (%) (Auto) 1 % (0-3) Neutrophils # (Auto) 4.2 x10^3uL (1.8-7.7) Lymphocytes # (Auto) 1.3 x10^3/uL (1.0-4.8) Monocytes # (Auto) 1.0 x10^3/uL (0.0-1.1) Eosinophils # (Auto) 0.1 x10^3/uL (0.0-0.7) Basophils # (Auto) 0.0 x10^3/uL (0.0-0.2) Prothrombin Time 14.4 SEC (11.7-14.0) Prothromb Time International Ratio 1.2 (0.8-1.1) Activated Partial Thromboplast Time 37 SEC (24-38) Sodium Level 140 mmol/L (136-145) Potassium Level 4.1 mmol/L (3.5-5.1) Chloride Level 104 mmol/L (98-107) Carbon Dioxide Level 24 mmol/L (21-32) Anion Gap 12 (6-14) Blood Urea Nitrogen 17 mg/dL (8-26) Creatinine 1.3 mg/dL (0.7-1.3) Estimated GFR (Cockcroft-Gault) 67.0 BUN/Creatinine Ratio 13 (6-20) Glucose Level 95 mg/dL (70-99) Calcium Level 9.6 mg/dL (8.5-10.1) Total Bilirubin 0.9 mg/dL (0.2-1.0) Aspartate Amino Transf (AST/SGOT) 206 U/L (15-37) Alanine Aminotransferase (ALT/SGPT) 170 U/L (16-63) Alkaline Phosphatase 226 U/L (46-116) Total Protein 8.6 g/dL (6.4-8.2) Albumin 3.6 g/dL (3.4-5.0) Albumin/Globulin Ratio 0.7 (1.0-1.7) Glucose (Fingerstick) 69 mg/dL (70-99) 75 mg/dL (70-99) 236 mg/dL (70-99) Test 02/09/17 05:00 02/09/17 07:28 White Blood Count 6.6 x10^3/uL (4.0-11.0) Red Blood Count 3.89 x10^6/uL (4.30-5.70) Hemoglobin 11.6 g/dL (13.0-17.5) Hematocrit 33.3 % (39.0-53.0) Mean Corpuscular Volume 86 fL (79-100) Mean Corpuscular Hemoglobin 30 pg (25-35) Mean Corpuscular Hemoglobin Concent 35 g/dL (31-37) Red Cell Distribution Width 13.6 % (11.5-14.5) Platelet Count 120 x10^3/uL (140-400) Neutrophils (%) (Auto) 81 % (31-73) Lymphocytes (%) (Auto) 10 % (24-48) Monocytes (%) (Auto) 9 % (0-9) Eosinophils (%) (Auto) 0 % (0-3) Basophils (%) (Auto) 0 % (0-3) Neutrophils # (Auto) 5.3 x10^3uL (1.8-7.7) Lymphocytes # (Auto) 0.7 x10^3/uL (1.0-4.8) Monocytes # (Auto) 0.6 x10^3/uL (0.0-1.1) Eosinophils # (Auto) 0.0 x10^3/uL (0.0-0.7) Basophils # (Auto) 0.0 x10^3/uL (0.0-0.2) Sodium Level 139 mmol/L (136-145) Potassium Level 5.5 mmol/L (3.5-5.1) Chloride Level 105 mmol/L (98-107) Carbon Dioxide Level 29 mmol/L (21-32) Anion Gap 5 (6-14) Blood Urea Nitrogen 17 mg/dL (8-26) Creatinine 1.3 mg/dL (0.7-1.3) Estimated GFR (Cockcroft-Gault) 67.0 BUN/Creatinine Ratio 13 (6-20) Glucose Level 168 mg/dL (70-99) Calcium Level 9.1 mg/dL (8.5-10.1) Total Bilirubin 0.6 mg/dL (0.2-1.0) Aspartate Amino Transf (AST/SGOT) 151 U/L (15-37) Alanine Aminotransferase (ALT/SGPT) 136 U/L (16-63) Alkaline Phosphatase 191 U/L (46-116) Total Protein 7.9 g/dL (6.4-8.2) Albumin 3.0 g/dL (3.4-5.0) Albumin/Globulin Ratio 0.6 (1.0-1.7) Glucose (Fingerstick) 226 mg/dL (70-99) Assessment Assessment POD #1 CR right ankle fracture with external fixator application Problems: Plan Plan of Care Continue POC including DVT ppx and pain control. NWB on right lower extremity. Continue ice and elevation. Ice bags were filled and placed on right lower leg. DONELL MCCANN Feb 09, 2017 11:10
[2017-02-09] MEDS ORDERED: MORPHINE SULFATE 4 MG/ML DISP.SYRIN. IV PRN (11:30)
[2017-02-09] MEDS ORDERED: DOCUSATE SODIUM 100 MG CAPSULE. PO PRN (11:30)
[2017-02-09] MEDS ORDERED: hydrALAZINE 20 MG/ML VIAL. IVP PRN (11:30)
[2017-02-09] MEDS ORDERED: ACETAMINOPHEN 325 MG TABLET. PO PRN (11:30)
[2017-02-09] MEDS ORDERED: SODIUM POLYSTYRENE SULFONATE 15 GM/60 ML ORAL.SUSP. PO ONE (11:30)
[2017-02-09] MEDS ORDERED: traMADol 50 MG TABLET PO PRN (11:30)
[2017-02-09] MEDS ORDERED: ONDANSETRON PF 4 MG/2 ML VIAL. IV PRN (11:30)
--- NOTE | 2017-02-09 14:10 | PDOC ---
PROGRESS NOTES Chief Complaint Chief Complaint 1. traumatic Comminuted moderately displaced and angulated tibial plafond fracture. Moderately displaced angulated distal fibular fracture. s/p external fixator by ortho 02/08 2. DM 2 with neuropathy 3. HTN, dyslipdiemia hyperkalemia elevated transaminitis 2/2 HERNÁNDEZ likely mild malnutrition plan: i talked to dr. Flores, pt is stable to dc with the fixator, but need to fu with another ortho for internal fixation in 2 weeks. will need home DVT ppx pt not sure if he wants to go home . i recommend rehab will get PTOT, SW cont home meds, SSI labs tmr kayexalate x1 History of Present Illness History of Present Illness ROS: no fever, chills, sob, or chest pain still severe right ankle pain Vitals Vitals Vital Signs Date Time Temp Pulse Resp B/P (MAP) Pulse Ox O2 Delivery O2 Flow Rate FiO2 02/09/17 11:51 18 02/09/17 11:06 98.3 70 157/80 (105) 98 Room Air 98.3 02/08/17 17:37 10.0 Physical Exam Physical Exam right lower ext has external fixation, can move toes, sensation ok General: Alert, Oriented X3, Cooperative, mild distress Heart: Regular rate, Normal S1, Normal S2 Lungs: Clear Abdomen: Normal bowel sounds, Soft, No tenderness, No hepatosplenomegaly, No masses Extremities: No clubbing, No cyanosis, Normal pulses Skin: No rashes, No breakdown, No significant lesion Labs LABS Laboratory Tests Test 02/08/17 15:00 02/08/17 17:28 02/08/17 17:49 02/08/17 22:12 White Blood Count 6.5 x10^3/uL (4.0-11.0) Red Blood Count 4.27 x10^6/uL (4.30-5.70) Hemoglobin 12.5 g/dL (13.0-17.5) Hematocrit 36.8 % (39.0-53.0) Mean Corpuscular Volume 86 fL (79-100) Mean Corpuscular Hemoglobin 29 pg (25-35) Mean Corpuscular Hemoglobin Concent 34 g/dL (31-37) Red Cell Distribution Width 13.6 % (11.5-14.5) Platelet Count 161 x10^3/uL (140-400) Neutrophils (%) (Auto) 64 % (31-73) Lymphocytes (%) (Auto) 20 % (24-48) Monocytes (%) (Auto) 15 % (0-9) Eosinophils (%) (Auto) 1 % (0-3) Basophils (%) (Auto) 1 % (0-3) Neutrophils # (Auto) 4.2 x10^3uL (1.8-7.7) Lymphocytes # (Auto) 1.3 x10^3/uL (1.0-4.8) Monocytes # (Auto) 1.0 x10^3/uL (0.0-1.1) Eosinophils # (Auto) 0.1 x10^3/uL (0.0-0.7) Basophils # (Auto) 0.0 x10^3/uL (0.0-0.2) Prothrombin Time 14.4 SEC (11.7-14.0) Prothromb Time International Ratio 1.2 (0.8-1.1) Activated Partial Thromboplast Time 37 SEC (24-38) Sodium Level 140 mmol/L (136-145) Potassium Level 4.1 mmol/L (3.5-5.1) Chloride Level 104 mmol/L (98-107) Carbon Dioxide Level 24 mmol/L (21-32) Anion Gap 12 (6-14) Blood Urea Nitrogen 17 mg/dL (8-26) Creatinine 1.3 mg/dL (0.7-1.3) Estimated GFR (Cockcroft-Gault) 67.0 BUN/Creatinine Ratio 13 (6-20) Glucose Level 95 mg/dL (70-99) Calcium Level 9.6 mg/dL (8.5-10.1) Total Bilirubin 0.9 mg/dL (0.2-1.0) Aspartate Amino Transf (AST/SGOT) 206 U/L (15-37) Alanine Aminotransferase (ALT/SGPT) 170 U/L (16-63) Alkaline Phosphatase 226 U/L (46-116) Total Protein 8.6 g/dL (6.4-8.2) Albumin 3.6 g/dL (3.4-5.0) Albumin/Globulin Ratio 0.7 (1.0-1.7) Glucose (Fingerstick) 69 mg/dL (70-99) 75 mg/dL (70-99) 236 mg/dL (70-99) Test 02/09/17 05:00 02/09/17 07:28 02/09/17 11:35 White Blood Count 6.6 x10^3/uL (4.0-11.0) Red Blood Count 3.89 x10^6/uL (4.30-5.70) Hemoglobin 11.6 g/dL (13.0-17.5) Hematocrit 33.3 % (39.0-53.0) Mean Corpuscular Volume 86 fL (79-100) Mean Corpuscular Hemoglobin 30 pg (25-35) Mean Corpuscular Hemoglobin Concent 35 g/dL (31-37) Red Cell Distribution Width 13.6 % (11.5-14.5) Platelet Count 120 x10^3/uL (140-400) Neutrophils (%) (Auto) 81 % (31-73) Lymphocytes (%) (Auto) 10 % (24-48) Monocytes (%) (Auto) 9 % (0-9) Eosinophils (%) (Auto) 0 % (0-3) Basophils (%) (Auto) 0 % (0-3) Neutrophils # (Auto) 5.3 x10^3uL (1.8-7.7) Lymphocytes # (Auto) 0.7 x10^3/uL (1.0-4.8) Monocytes # (Auto) 0.6 x10^3/uL (0.0-1.1) Eosinophils # (Auto) 0.0 x10^3/uL (0.0-0.7) Basophils # (Auto) 0.0 x10^3/uL (0.0-0.2) Sodium Level 139 mmol/L (136-145) Potassium Level 5.5 mmol/L (3.5-5.1) Chloride Level 105 mmol/L (98-107) Carbon Dioxide Level 29 mmol/L (21-32) Anion Gap 5 (6-14) Blood Urea Nitrogen 17 mg/dL (8-26) Creatinine 1.3 mg/dL (0.7-1.3) Estimated GFR (Cockcroft-Gault) 67.0 BUN/Creatinine Ratio 13 (6-20) Glucose Level 168 mg/dL (70-99) Calcium Level 9.1 mg/dL (8.5-10.1) Total Bilirubin 0.6 mg/dL (0.2-1.0) Aspartate Amino Transf (AST/SGOT) 151 U/L (15-37) Alanine Aminotransferase (ALT/SGPT) 136 U/L (16-63) Alkaline Phosphatase 191 U/L (46-116) Total Protein 7.9 g/dL (6.4-8.2) Albumin 3.0 g/dL (3.4-5.0) Albumin/Globulin Ratio 0.6 (1.0-1.7) Glucose (Fingerstick) 226 mg/dL (70-99) 133 mg/dL (70-99) Comment Review of Relevant I have reviewed the following items pancho (where applicable) has been applied. Labs Laboratory Tests Test 02/08/17 15:00 02/08/17 17:28 02/08/17 17:49 02/08/17 22:12 White Blood Count 6.5 x10^3/uL (4.0-11.0) Red Blood Count 4.27 x10^6/uL (4.30-5.70) Hemoglobin 12.5 g/dL (13.0-17.5) Hematocrit 36.8 % (39.0-53.0) Mean Corpuscular Volume 86 fL (79-100) Mean Corpuscular Hemoglobin 29 pg (25-35) Mean Corpuscular Hemoglobin Concent 34 g/dL (31-37) Red Cell Distribution Width 13.6 % (11.5-14.5) Platelet Count 161 x10^3/uL (140-400) Neutrophils (%) (Auto) 64 % (31-73) Lymphocytes (%) (Auto) 20 % (24-48) Monocytes (%) (Auto) 15 % (0-9) Eosinophils (%) (Auto) 1 % (0-3) Basophils (%) (Auto) 1 % (0-3) Neutrophils # (Auto) 4.2 x10^3uL (1.8-7.7) Lymphocytes # (Auto) 1.3 x10^3/uL (1.0-4.8) Monocytes # (Auto) 1.0 x10^3/uL (0.0-1.1) Eosinophils # (Auto) 0.1 x10^3/uL (0.0-0.7) Basophils # (Auto) 0.0 x10^3/uL (0.0-0.2) Prothrombin Time 14.4 SEC (11.7-14.0) Prothromb Time International Ratio 1.2 (0.8-1.1) Activated Partial Thromboplast Time 37 SEC (24-38) Sodium Level 140 mmol/L (136-145) Potassium Level 4.1 mmol/L (3.5-5.1) Chloride Level 104 mmol/L (98-107) Carbon Dioxide Level 24 mmol/L (21-32) Anion Gap 12 (6-14) Blood Urea Nitrogen 17 mg/dL (8-26) Creatinine 1.3 mg/dL (0.7-1.3) Estimated GFR (Cockcroft-Gault) 67.0 BUN/Creatinine Ratio 13 (6-20) Glucose Level 95 mg/dL (70-99) Calcium Level 9.6 mg/dL (8.5-10.1) Total Bilirubin 0.9 mg/dL (0.2-1.0) Aspartate Amino Transf (AST/SGOT) 206 U/L (15-37) Alanine Aminotransferase (ALT/SGPT) 170 U/L (16-63) Alkaline Phosphatase 226 U/L (46-116) Total Protein 8.6 g/dL (6.4-8.2) Albumin 3.6 g/dL (3.4-5.0) Albumin/Globulin Ratio 0.7 (1.0-1.7) Glucose (Fingerstick) 69 mg/dL (70-99) 75 mg/dL (70-99) 236 mg/dL (70-99) Test 02/09/17 05:00 02/09/17 07:28 02/09/17 11:35 White Blood Count 6.6 x10^3/uL (4.0-11.0) Red Blood Count 3.89 x10^6/uL (4.30-5.70) Hemoglobin 11.6 g/dL (13.0-17.5) Hematocrit 33.3 % (39.0-53.0) Mean Corpuscular Volume 86 fL (79-100) Mean Corpuscular Hemoglobin 30 pg (25-35) Mean Corpuscular Hemoglobin Concent 35 g/dL (31-37) Red Cell Distribution Width 13.6 % (11.5-14.5) Platelet Count 120 x10^3/uL (140-400) Neutrophils (%) (Auto) 81 % (31-73) Lymphocytes (%) (Auto) 10 % (24-48) Monocytes (%) (Auto) 9 % (0-9) Eosinophils (%) (Auto) 0 % (0-3) Basophils (%) (Auto) 0 % (0-3) Neutrophils # (Auto) 5.3 x10^3uL (1.8-7.7) Lymphocytes # (Auto) 0.7 x10^3/uL (1.0-4.8) Monocytes # (Auto) 0.6 x10^3/uL (0.0-1.1) Eosinophils # (Auto) 0.0 x10^3/uL (0.0-0.7) Basophils # (Auto) 0.0 x10^3/uL (0.0-0.2) Sodium Level 139 mmol/L (136-145) Potassium Level 5.5 mmol/L (3.5-5.1) Chloride Level 105 mmol/L (98-107) Carbon Dioxide Level 29 mmol/L (21-32) Anion Gap 5 (6-14) Blood Urea Nitrogen 17 mg/dL (8-26) Creatinine 1.3 mg/dL (0.7-1.3) Estimated GFR (Cockcroft-Gault) 67.0 BUN/Creatinine Ratio 13 (6-20) Glucose Level 168 mg/dL (70-99) Calcium Level 9.1 mg/dL (8.5-10.1) Total Bilirubin 0.6 mg/dL (0.2-1.0) Aspartate Amino Transf (AST/SGOT) 151 U/L (15-37) Alanine Aminotransferase (ALT/SGPT) 136 U/L (16-63) Alkaline Phosphatase 191 U/L (46-116) Total Protein 7.9 g/dL (6.4-8.2) Albumin 3.0 g/dL (3.4-5.0) Albumin/Globulin Ratio 0.6 (1.0-1.7) Glucose (Fingerstick) 226 mg/dL (70-99) 133 mg/dL (70-99) Laboratory Tests Test 02/08/17 15:00 02/08/17 17:28 02/08/17 17:49 02/08/17 22:12 White Blood Count 6.5 x10^3/uL (4.0-11.0) Red Blood Count 4.27 x10^6/uL (4.30-5.70) Hemoglobin 12.5 g/dL (13.0-17.5) Hematocrit 36.8 % (39.0-53.0) Mean Corpuscular Volume 86 fL (79-100) Mean Corpuscular Hemoglobin 29 pg (25-35) Mean Corpuscular Hemoglobin Concent 34 g/dL (31-37) Red Cell Distribution Width 13.6 % (11.5-14.5) Platelet Count 161 x10^3/uL (140-400) Neutrophils (%) (Auto) 64 % (31-73) Lymphocytes (%) (Auto) 20 % (24-48) Monocytes (%) (Auto) 15 % (0-9) Eosinophils (%) (Auto) 1 % (0-3) Basophils (%) (Auto) 1 % (0-3) Neutrophils # (Auto) 4.2 x10^3uL (1.8-7.7) Lymphocytes # (Auto) 1.3 x10^3/uL (1.0-4.8) Monocytes # (Auto) 1.0 x10^3/uL (0.0-1.1) Eosinophils # (Auto) 0.1 x10^3/uL (0.0-0.7) Basophils # (Auto) 0.0 x10^3/uL (0.0-0.2) Prothrombin Time 14.4 SEC (11.7-14.0) Prothromb Time International Ratio 1.2 (0.8-1.1) Activated Partial Thromboplast Time 37 SEC (24-38) Sodium Level 140 mmol/L (136-145) Potassium Level 4.1 mmol/L (3.5-5.1) Chloride Level 104 mmol/L (98-107) Carbon Dioxide Level 24 mmol/L (21-32) Anion Gap 12 (6-14) Blood Urea Nitrogen 17 mg/dL (8-26) Creatinine 1.3 mg/dL (0.7-1.3) Estimated GFR (Cockcroft-Gault) 67.0 BUN/Creatinine Ratio 13 (6-20) Glucose Level 95 mg/dL (70-99) Calcium Level 9.6 mg/dL (8.5-10.1) Total Bilirubin 0.9 mg/dL (0.2-1.0) Aspartate Amino Transf (AST/SGOT) 206 U/L (15-37) Alanine Aminotransferase (ALT/SGPT) 170 U/L (16-63) Alkaline Phosphatase 226 U/L (46-116) Total Protein 8.6 g/dL (6.4-8.2) Albumin 3.6 g/dL (3.4-5.0) Albumin/Globulin Ratio 0.7 (1.0-1.7) Glucose (Fingerstick) 69 mg/dL (70-99) 75 mg/dL (70-99) 236 mg/dL (70-99) Test 02/09/17 05:00 02/09/17 07:28 02/09/17 11:35 White Blood Count 6.6 x10^3/uL (4.0-11.0) Red Blood Count 3.89 x10^6/uL (4.30-5.70) Hemoglobin 11.6 g/dL (13.0-17.5) Hematocrit 33.3 % (39.0-53.0) Mean Corpuscular Volume 86 fL (79-100) Mean Corpuscular Hemoglobin 30 pg (25-35) Mean Corpuscular Hemoglobin Concent 35 g/dL (31-37) Red Cell Distribution Width 13.6 % (11.5-14.5) Platelet Count 120 x10^3/uL (140-400) Neutrophils (%) (Auto) 81 % (31-73) Lymphocytes (%) (Auto) 10 % (24-48) Monocytes (%) (Auto) 9 % (0-9) Eosinophils (%) (Auto) 0 % (0-3) Basophils (%) (Auto) 0 % (0-3) Neutrophils # (Auto) 5.3 x10^3uL (1.8-7.7) Lymphocytes # (Auto) 0.7 x10^3/uL (1.0-4.8) Monocytes # (Auto) 0.6 x10^3/uL (0.0-1.1) Eosinophils # (Auto) 0.0 x10^3/uL (0.0-0.7) Basophils # (Auto) 0.0 x10^3/uL (0.0-0.2) Sodium Level 139 mmol/L (136-145) Potassium Level 5.5 mmol/L (3.5-5.1) Chloride Level 105 mmol/L (98-107) Carbon Dioxide Level 29 mmol/L (21-32) Anion Gap 5 (6-14) Blood Urea Nitrogen 17 mg/dL (8-26) Creatinine 1.3 mg/dL (0.7-1.3) Estimated GFR (Cockcroft-Gault) 67.0 BUN/Creatinine Ratio 13 (6-20) Glucose Level 168 mg/dL (70-99) Calcium Level 9.1 mg/dL (8.5-10.1) Total Bilirubin 0.6 mg/dL (0.2-1.0) Aspartate Amino Transf (AST/SGOT) 151 U/L (15-37) Alanine Aminotransferase (ALT/SGPT) 136 U/L (16-63) Alkaline Phosphatase 191 U/L (46-116) Total Protein 7.9 g/dL (6.4-8.2) Albumin 3.0 g/dL (3.4-5.0) Albumin/Globulin Ratio 0.6 (1.0-1.7) Glucose (Fingerstick) 226 mg/dL (70-99) 133 mg/dL (70-99) Medications Current Medications Fentanyl Citrate (Fentanyl 2ml Vial) 100 mcg 1X ONCE IV Last administered on 02/08/17 15:09; Start 02/08/17 at 15:00; Stop 02/08/17 at 15:14; Status DC Sodium Chloride 1,000 ml @ 100 mls/hr Q10H IV Last administered on 02/09/17 01:43; Start 02/08/17 at 15:43; Stop 02/09/17 at 11:21; Status DC Ondansetron HCl (Zofran) 4 mg PRN Q6HRS PRN IV NAUSEA/VOMITING; Start 02/08/17 at 15:45 Prochlorperazine Edisylate (Compazine) 10 mg PRN Q6HRS PRN IV NAUSEA/VOMITING; Start 02/08/17 at 15:45 Prochlorperazine (Compazine) 25 mg PRN Q12HR PRN [place] NAUSEA/VOMITING; Start 02/08/17 at 15:45 Al Hydroxide/Mg Hydroxide (Mylanta Plus Xs) 30 ml PRN Q3HRS PRN PO HEARTBURN / GAS; Start 02/08/17 at 15:45 Calcium Carbonate/ Glycine (Tums) 500 mg PRN Q3HRS PRN PO UPSET STOMACH; Start 02/08/17 at 15:45 Zolpidem Tartrate (Ambien) 5 mg PRN QHS PRN PO INSOMNIA, MAY REPEAT IN 1HR; Start 02/08/17 at 15:45 Oxycodone HCl (Roxicodone) 5 mg PRN Q3HRS PRN PO BREAKTHROUGH PAIN Last administered on 02/09/17 09:08; Start 02/08/17 at 15:45 Morphine Sulfate 4 mg PRN Q2HR PRN IV PAIN; Start 02/08/17 at 15:45 Oxycodone/ Acetaminophen (Percocet 5/325) 1 tab PRN Q4HRS PRN PO MILD PAIN, 1ST CHOICE Last administered on 02/09/17 05:54; Start 02/08/17 at 15:45 Oxycodone/ Acetaminophen (Percocet 5/325) 2 tab PRN Q4HRS PRN PO MODERATE PAIN , SEVERE PAIN Last administered on 02/09/17 10:51; Start 02/08/17 at 15:45 Ketorolac Tromethamine (Toradol) 30 mg PRN Q6HRS PRN IV PAIN; Start 02/08/17 at 15:45; Stop 02/13/17 at 15:44 Acetaminophen (Tylenol) 650 mg PRN Q6HRS PRN PO Headaches, Temp > 101.5F; Start 02/08/17 at 15:45 Ibuprofen (Motrin) 400 mg PRN Q6HRS PRN PO MILD PAIN; Start 02/08/17 at 15:45 Docusate Sodium (Colace) 100 mg BID PO Last administered on 02/09/17 09:04; Start 02/08/17 at 21:00 Magnesium Hydroxide (Milk Of Magnesia) 2,400 mg PRN Q12HR PRN PO CONSTIPATION; Start 02/08/17 at 15:45 Bisacodyl (Dulcolax Supp) 10 mg PRN DAILY PRN [place] CONSTIPATION; Start 02/08/17 at 15:45 Enoxaparin Sodium (Lovenox 40mg Syringe) 40 mg Q24H SQ ; Start 02/08/17 at 16:00 Fentanyl Citrate (Fentanyl 2ml Vial) 100 mcg STK-MED ONCE .ROUTE ; Start at 15:49; Stop 02/08/17 at 15:50; Status DC Ephedrine Sulfate (Akovaz) 50 mg STK-MED ONCE .ROUTE ; Start 02/08/17 at 15:50; Stop 02/08/17 at 15:51; Status DC Bupivacaine HCl/ Epinephrine Bitart (Sensorcaine-Epi 0.25%-1:627879 Mpf) 30 ml STK-MED ONCE .ROUTE Last administered on 02/08/17t 16:47; Start 02/08/17 at 14: 52; Stop 02/08/17 at 15:52; Status DC Cefazolin Sodium/ Dextrose 50 ml @ As Directed STK-MED ONCE IV ; Start 02/08/17 at 16:13; Stop 02/08/17 at 16:14; Status DC Propofol 20 ml @ As Directed STK-MED ONCE IV ; Start 02/08/17 at 16:48; Stop at 16:49; Status DC Famotidine (Pepcid) 20 mg STK-MED ONCE .ROUTE ; Start 02/08/17 at 16:48; Stop 02/08/17 at 16:49; Status DC Lidocaine HCl (Lidocaine Pf 2% Vial) 5 ml STK-MED ONCE .ROUTE ; Start 02/08/17 at 16:48; Stop 02/08/17 at 16:49; Status DC Ondansetron HCl (Zofran) 4 mg STK-MED ONCE .ROUTE ; Start 02/08/17 at 16:48; Stop 02/08/17 at 16:49; Status DC Dexamethasone Sodium Phosphate (Decadron) 20 mg STK-MED ONCE .ROUTE ; Start 02/08/17 at 16:52; Stop 02/08/17 at 16:53; Status DC Cefazolin Sodium/ Dextrose 50 ml @ 100 mls/hr Q8HRS IV Last administered on t 05:55; Start 02/08/17 at 22:00; Stop 02/09/17 at 06:29; Status DC Morphine Sulfate 4 mg STK-MED ONCE .ROUTE ; Start 02/08/17 at 17:34; Stop at 17:35; Status DC Fentanyl Citrate (Fentanyl 2ml Vial) 25 mcg PRN Q5MIN PRN IV Acute Pain; Start 02/08/17 at 17:45; Stop 02/09/17 at 17:44 Fentanyl Citrate (Fentanyl 2ml Vial) 50 mcg PRN Q5MIN PRN IV Acute Pain Last administered on 02/08/17 17:46; Start 02/08/17 at 17:45; Stop 02/09/17 at 17:44 Morphine Sulfate 2 mg PRN Q10MIN PRN IV Mild Pain Last administered on 17:47; Start 02/08/17 at 17:45; Stop 02/09/17 at 17:44 Hydromorphone HCl (Dilaudid) 0.5 mg PRN Q10MIN PRN IV Moderate to severe pain Last administered on 02/08/17 17:56; Start 02/08/17 at 17:45; Stop 02/09/17 at 17:44 Ringer's Solution 1,000 ml @ 125 mls/hr Q8H IV ; Start 02/08/17 at 18:21; Stop 02/09/17 at 05:50; Status DC Insulin Aspart (NovoLOG) 0-7 UNITS TIDWMEALS SQ Last administered on 02/09/17 09:13; Start 02/09/17 at 08:00 Dextrose (Dextrose 50%-Water Syringe) 12.5 gm PRN Q15MIN PRN IV SEE COMMENTS; Start 02/08/17 at 23:00 Lisinopril (Prinivil) 40 mg DAILY PO Last administered on 02/09/17 09:06; Start 02/09/17 at 09:00 Tramadol HCl (Ultram) 50 mg TID PO Last administered on 02/09/17 09:05; Start 02/09/17 at 09:00 Gabapentin (Neurontin) 600 mg BID PO Last administered on 02/09/17 09:04; Start 02/09/17 at 09:00 Insulin Aspart (NovoLOG) 2 units 1X ONCE SQ Last administered on 10/3/17at 23: 55; Start 02/08/17 at 23:45; Stop 02/08/17 at 23:46; Status DC Sodium Polystyrene Sulfonate (Kayexalate) 15 gm 1X ONCE PO ; Start 02/09/17 at 11:30; Stop 02/09/17 at 11:31; Status DC Acetaminophen (Tylenol) 650 mg PRN Q6HRS PRN PO FEVER; Start 02/09/17 at 11:30 ; Stop 02/09/17 at 11:30; Status DC Ondansetron HCl (Zofran) 4 mg PRN Q6HRS PRN IV NAUSEA/VOMITING; Start 02/09/17 at 11:30 Morphine Sulfate 2 mg PRN Q2HR PRN IV PAIN; Start 02/09/17 at 11:30 Tramadol HCl (Ultram) 50 mg PRN Q6HRS PRN PO PAIN; Start 02/09/17 at 11:30 Hydralazine HCl (Apresoline) 10 mg PRN Q4HRS PRN IVP ELEVATED BP, SEE COMMENTS ; Start 02/09/17 at 11:30 Docusate Sodium (Colace) 100 mg PRN DAILY PRN PO CONSTIPATION; Start 02/09/17 at 11:30 Active Scripts Active Reported Levemir (Insulin Detemir) 100 Unit/1 Ml Vial 10 Unit SQ Gabapentin 600 Mg Tablet 600 Mg PO TID Tramadol Hcl 50 Mg Tablet 1 Tab PO TID Lisinopril 40 Mg Tablet 40 Mg PO DAILY Metformin Hcl 1,000 Mg Tablet 1,000 Mg PO Levemir (Insulin Detemir) 100 Unit/1 Ml Vial 100 Unit SQ Vitals/I & O Vital Sign - Last 24 Hours 02/08/17 02/08/17 02/08/17 02/08/17 14:54 15:09 15:09 15:21 Temp 98.9 98.9 Pulse 101 93 93 Resp 18 20 18 B/P (MAP) 165/80 (108) 146/75 (98) 153/79 (103) Pulse Ox 97 98 98 97 O2 Delivery Room Air Room Air Room Air Room Air 02/08/17 02/08/17 02/08/17 02/08/17 15:36 15:40 17:19 17:19 Temp 99.1 99.5 99.1 99.5 Pulse 91 88 91 Resp 20 20 16 B/P (MAP) 143/71 (95) 154/74 131/56 Pulse Ox 96 98 99 O2 Delivery Room Air Mask O2 Flow Rate 10 10 02/08/17 02/08/17 02/08/17 02/08/17 17:34 17:36 17:37 17:47 Pulse 100 Resp 18 20 20 20 B/P (MAP) 188/88 Pulse Ox 99 99 95 O2 Delivery Simple Mask Simple Mask Simple Mask Room Air O2 Flow Rate 10 10.0 10.0 02/08/17 02/08/17 02/08/17 02/08/17 17:49 17:56 18:04 19:15 Temp 100.1 98.8 100.1 98.8 Pulse 99 100 102 Resp 18 20 18 18 B/P (MAP) 185/83 132/74 178/79 (112) Pulse Ox 96 98 99 98 O2 Delivery Room Air Room Air Room Air Room Air 02/08/17 02/08/17 02/08/17 02/08/17 19:30 20:00 20:00 20:30 Temp 98.1 98.1 98.3 98.1 98.1 98.3 Pulse 95 90 94 Resp 20 20 20 B/P (MAP) 175/86 (115) 175/86 (115) 153/87 (109) Pulse Ox 97 97 94 O2 Delivery Room Air Room Air Room Air Room Air 02/08/17 02/08/17 02/08/17 02/08/17 20:59 21:30 21:39 22:17 Temp 98.4 98.3 98.1 98.4 98.3 98.1 Pulse 103 92 90 Resp 20 18 18 B/P (MAP) 178/79 (112) 174/81 (112) 186/93 (124) Pulse Ox 98 98 100 O2 Delivery Room Air Room Air Room Air Room Air 02/08/17 02/09/17 02/09/17 02/09/17 23:39 01:03 03:28 05:54 Temp 98.4 98.1 98.4 98.1 Pulse 74 70 Resp 18 18 B/P (MAP) 164/87 (112) 147/79 (101) Pulse Ox 98 98 O2 Delivery Room Air Room Air Room Air Room Air 02/09/17 02/09/17 02/09/17 02/09/17 06:54 07:15 09:05 09:06 Temp 98.2 98.2 Pulse 78 78 Resp 20 B/P (MAP) 145/93 (110) 145/93 Pulse Ox 97 O2 Delivery Room Air Room Air Room Air 02/09/17 02/09/17 02/09/17 02/09/17 09:08 10:00 10:00 10:51 Resp 18 18 O2 Delivery Room Air Room Air Room Air Room Air 02/09/17 02/09/17 11:06 11:51 Temp 98.3 98.3 Pulse 70 Resp 18 18 B/P (MAP) 157/80 (105) Pulse Ox 98 O2 Delivery Room Air ARIC ROBERTS MD Feb 09, 2017 14:10
[2017-02-09 15:06] VITALS: BP 164/80
[2017-02-09] MEDS ORDERED: DOCU-109 PO (15:22)
[2017-02-09] MEDS ORDERED: ENOX40DI3 SQ (15:22)
[2017-02-09] MEDS ORDERED: OXYC1TAB7 PO (15:22)
[2017-02-09] MEDS: ENOXAPARIN 40 MG/0.4 ML SYRINGE. SQ SCH (15:23)
--- NOTE | 2017-02-09 15:27 | PDOC3 ---
Discharge Summary [facility] Date of Admission: Feb 08, 2017 Discharge Date: Feb 09, 2017 Admitting Diagnosis 1. traumatic Comminuted moderately displaced and angulated tibial plafond fracture. Moderately displaced angulated distal fibular fracture. s/p external fixator by ortho 02/08 2. DM 2 with neuropathy 3. HTN, dyslipdiemia hyperkalemia elevated transaminitis /2 HERNÁNDEZ likely mild malnutrition Problems: CONSULTS dr. Flores Brief Hospital Course Mr. John is a 66 old M, dm2, htn, came after fall from a roof he was helping his friend to repair, about 12f high. pt was found comminuted right ankle fx, underwent external fixation sx by dr. Flores, who recommends him to keep it for 1-2 weeks and then may need another internal fixation, PTOT ok to send him home, he wants home instead of rehab. dc home today, with pain meds, and lovenox daily [id number], waiting for nurse to find the specialist ortho that dr. Flores recommend for further sx before dc dc time 35min. Patient History: Patient reports no known family medical history. Problems: Disposition home H CONDITION AT DISCHARGE: Improved Diet ADA Scheduled Docusate Sodium (Colace), 100 MG PO BID Enoxaparin Sodium (Enoxaparin Sodium), 40 MG SQ Q24H Gabapentin (Gabapentin), 600 MG PO TID, (Reported) Lisinopril (Lisinopril), 40 MG PO DAILY, (Reported) Tramadol Hcl (Tramadol Hcl), 1 TAB PO TID, (Reported) Scheduled PRN Oxycodone Hcl/Acetaminophen (Oxycodone-Acetaminophen 5-325), 1 TAB PO PRN Q4HRS PRN for MILD PAIN, 1ST CHOICE Miscellaneous Medications Insulin Detemir (Levemir), 10 UNIT SQ, (Reported) Metformin Hcl (Metformin Hcl), 1,000 MG PO, (Reported) Discontinued Medications Acetaminophen (Tylenol Extra Strength), 500 MG PO, (Reported) Aspirin (Aspir 81), 81 MG PO, (Reported) Carvedilol (Carvedilol), 3.125 MG PO, (Reported) Esomeprazole Magnesium (Nexium Capsule), 40 MG PO, (Reported) Insulin Detemir (Levemir), 100 UNIT SQ, (Reported) Lisinopril (Lisinopril), 10 MG PO, (Reported) Trazodone Hcl (Trazodone Hcl), 50 MG PO, (Reported) Follow Up ortho in 1-2weeks ARIC ROBERTS MD Feb 09, 2017 15:27
== END 2017-02-09 17:30 | disposition home health service (06) | DRG 493 ==
LOC: ER 14:47 → 4 NORTH 15:24 → ER 15:38
PROVIDERS: ADMIT Internal Medicine; ATTEND Internal Medicine
PROC: 0QHG35Z Insertion of External Fixation Device into Right Tibia, Percutaneous Approach (ICD-10-PCS; principal; 2017-02-08 16:00)
DX: S82.871A Displaced pilon fracture of right tibia, initial encounter for closed fracture (principal); E44.1 Mild protein-calorie malnutrition; E11.42 Type 2 diabetes mellitus with diabetic polyneuropathy; E11.51 Type 2 diabetes mellitus with diabetic peripheral angiopathy without gangrene; S82.831A Other fracture of upper and lower end of right fibula, initial encounter for closed fracture; E87.5 Hyperkalemia; E11.40 Type 2 diabetes mellitus with diabetic neuropathy, unspecified; E78.5 Hyperlipidemia, unspecified; I10 Essential (primary) hypertension; W11.XXXA Fall on and from ladder, initial encounter; F12.90 Cannabis use, unspecified, uncomplicated; G89.29 Other chronic pain; R74.0 Nonspecific elevation of levels of transaminase and lactic acid dehydrogenase [LDH]; Y93.89 Activity, other specified; Z88.8 Allergy status to other drugs, medicaments and biological substances; Z82.49 Family history of ischemic heart disease and other diseases of the circulatory system; Z79.4 Long term (current) use of insulin; Z68.27 Body mass index [BMI] 27.0-27.9, adult; Y92.89 Other specified places as the place of occurrence of the external cause; Y99.8 Other external cause status; Y92.098 Other place in other non-institutional residence as the place of occurrence of the external cause
CPT/HCPCS: 36415; 73600; 73700; 76000; 76376; 80053; 82306; 82962; 85025; 85610; 85730; 96374; A4215; C1713; J0690; J1100; J1170; J1650; J1815; J2270; J2405; J2704; J3010; S0028; 97116; 97530; 99285-25; J2001